=== PATIENT | male | born 1975 | race Caucasian/White ===

== ENCOUNTER 2022-12-18 17:10 | Emergency (ER) | payer SELFPAY ==
[2022-12-18 17:44] VITALS: BP 132/100; PULSE 74
== END 2022-12-18 17:57 | disposition home or self-care (01) ==
LOC: DL.ED 17:10
DX: K02.9 Dental caries, unspecified (principal); Z88.1 Allergy status to other antibiotic agents; Z88.8 Allergy status to other drugs, medicaments and biological substances
CPT/HCPCS: 99282; 99283